=== PATIENT | female | born 1990 | race Caucasian/White ===

== ENCOUNTER 2018-04-19 11:22 | Emergency (ER) | payer SELFPAY ==
[~2018-04-19] VITALS: Ht 157.5 cm; Wt 72.7 kg
[2018-04-19 11:25] VITALS: BP 126/86
[2018-04-19] MEDS ORDERED: OXYC-42 PO (11:34)
== END 2018-04-19 16:36 | disposition left against medical advice (07) ==
LOC: EMS 11:23
DX: F11.23 Opioid dependence with withdrawal (principal); Z53.21 Procedure and treatment not carried out due to patient leaving prior to being seen by health care provider